=== PATIENT | female | born 1965 | race Caucasian/White ===

== ENCOUNTER → 2023-07-08 16:58 | Outpatient (BNVA) | payer OTHER, SELFPAY | PROVIDERS: PCP Nurse Practitioner Family; Visit Provider Nurse Practitioner Family | DX: R19.7 Diarrhea, unspecified (principal) | CPT/HCPCS: 87493 ==

== ENCOUNTER → 2023-07-15 10:25 | Outpatient (BNVA) | payer OTHER, SELFPAY | PROVIDERS: PCP Nurse Practitioner Family; Visit Provider Nurse Practitioner Family | DX: R19.7 Diarrhea, unspecified (principal) | CPT/HCPCS: 74018; 80053; 85025; 87177; 87209 ==

== ENCOUNTER → 2023-07-16 14:27 | Outpatient (BNVA) | payer OTHER, SELFPAY | PROVIDERS: PCP Nurse Practitioner Family; Visit Provider Nurse Practitioner Family | DX: R19.7 Diarrhea, unspecified (principal) | CPT/HCPCS: 87045; 87427; 87449 ==

== ENCOUNTER → 2023-09-13 11:05 | Outpatient (BNVA) | payer OTHER, SELFPAY | PROVIDERS: PCP Nurse Practitioner Family; Visit Provider Nurse Practitioner Family | DX: S60.211A Contusion of right wrist, initial encounter (principal); S40.012A Contusion of left shoulder, initial encounter; S80.01XA Contusion of right knee, initial encounter; W19.XXXA Unspecified fall, initial encounter | CPT/HCPCS: 73030; 73110; 73562 ==

== ENCOUNTER 2024-03-09 06:00 | Outpatient (RCR) | payer OTHER, SELFPAY | END 2024-03-22 23:59 | disposition home or self-care (01) | LOC: GPT 06:00 | PROVIDERS: Visit Provider Orthopaedic Surgery | DX: M23.212 Derangement of anterior horn of medial meniscus due to old tear or injury, left knee (principal); M22.2X2 Patellofemoral disorders, left knee | CPT/HCPCS: 97110; 97112; 97162; 97530 ==

== ENCOUNTER 2024-03-23 06:00 | Outpatient (RCR) | payer OTHER, SELFPAY | END 2024-04-22 23:59 | disposition home or self-care (01) | LOC: GPT 06:00 | PROVIDERS: Visit Provider Orthopaedic Surgery | DX: M23.212 Derangement of anterior horn of medial meniscus due to old tear or injury, left knee (principal) | CPT/HCPCS: 97110 ==

== ENCOUNTER → 2025-02-03 09:10 | Outpatient (BNVA) | payer OTHER, SELFPAY | PROVIDERS: PCP Nurse Practitioner Family; Visit Provider Nurse Practitioner Family | DX: Z13.6 Encounter for screening for cardiovascular disorders (principal); E04.1 Nontoxic single thyroid nodule | CPT/HCPCS: 80053; 80061; 84439; 84443; 84480; 85025 ==

== ENCOUNTER → 2025-04-14 09:31 | Outpatient (BNVA) | payer OTHER, SELFPAY | PROVIDERS: PCP Nurse Practitioner Family; Visit Provider Nurse Practitioner Family | DX: M25.551 Pain in right hip (principal); R10.31 Right lower quadrant pain | CPT/HCPCS: 81000 ==